=== PATIENT | male | born 1985 ===

== ENCOUNTER 2016-12-28 10:44 | Emergency (ER) | payer OTHER, SELFPAY ==
[2016-12-28 10:56] VITALS: BP 137/72; PULSE 84; RESP 20; TEMP 97.8
[2016-12-28 10:57] VITALS: BMI 24.4
[2016-12-28 11:12] VITALS: O2SAT 98
--- NOTE | 2016-12-28 12:07 | ED PDOC ---
HPI: Allergic Reaction Time Seen by Provider: 12/28/16 11:32 Chief Complaint (Nursing): Allergic Reaction Chief Complaint (Provider): Allergic reaction History Per: Patient History/Exam Limitations: no limitations Onset/Duration Of Symptoms: Days (yesterday) Current Symptoms Are (Timing): Still Present Additional Complaint(s): Pt. works with [employer]. States after working, he noted rash to his elbows, upper back, b/l upper legs and knees with itching. No pain. No numbness, tingles. No facial issues. No trouble swallowing or breathing. No chest pain. States others working have had a reaction as well. States only other thing he thinks may have caused the rash is walnuts he at yesterday. Past Medical History Reviewed: Nursing Documentation, Vital Signs Vital Signs: Last Vital Signs Temp 97.8 F 12/28/16 10:55 Pulse 84 12/28/16 10:55 Resp 20 12/28/16 10:55 BP 137/72 12/28/16 10:55 Pulse Ox 98 12/28/16 11:10 - Medical History PMH: No Chronic Diseases - Surgical History Surgical History: No Surg Hx - Family History Family History: States: Unknown Family Hx - Living Arrangements Living Arrangements: With Family - Social History Alcohol: None Drugs: Denies - Home Medications Home Medications: Ambulatory Orders Medication Instructions Recorded Guaifenesin/Pseudoephedrne HCl 1 ter PO BID #14 ter 03/24/14 [Mucinex D 1200 mg-120 mg] Azithromycin [Zithromax] 250 mg PO DAILY #6 tab 02/02/16 Loratadine/Pseudoephedrine 1 each PO DAILY PRN #10 tab.er.24h 02/02/16 [Claritin-D 24 Hour Tablet] DiphenhydrAMINE [Benadryl] 25 mg PO TID PRN 5 Days cap 12/28/16 predniSONE [predniSONE Tab] 20 mg PO BID 5 Days tab 12/28/16 - Allergies Allergies/Adverse Reactions: Allergies Allergy/AdvReac Type Severity Reaction Status Date / Time shellfish derived Allergy RASH Verified 12/28/16 11:10 Review of Systems Constitutional: Negative for: Fever, Weakness Cardiovascular: Negative for: Chest Pain, Edema, Light Headedness Respiratory: Negative for: Shortness of Breath Gastrointestinal: Negative for: Nausea, Vomiting, Abdominal Pain Musculoskeletal: Negative for: Neck Pain, Shoulder Pain, Arm Pain, Back Pain Skin: Positive for: Rash Neurological: Negative for: Weakness Physical Exam - Reviewed Nursing Documentation Reviewed: Yes Vital Signs Reviewed: Yes - Physical Exam Appears: Positive for: Non-toxic, No Acute Distress Head Exam: Positive for: ATRAUMATIC, NORMAL INSPECTION, NORMOCEPHALIC Skin: Positive for: Rash (R upper back, b/l elbows and knees, bl front upper legs with blanching erythema mild raised; no dc; appears in urticarial pattern) Eye Exam: Positive for: EOMI, Normal appearance, PERRL ENT: Positive for: Normal ENT Inspection. Negative for: Nasal Congestion, Pharyngeal Erythema Neck: Positive for: Normal, Painless ROM, Supple Cardiovascular/Chest: Positive for: Regular Rate, Rhythm Respiratory: Positive for: CNT, Normal Breath Sounds Gastrointestinal/Abdominal: Positive for: Normal Exam, Bowel Sounds, Soft. Negative for: Tenderness Back: Negative for: L CVA Tenderness, R CVA Tenderness Extremity: Positive for: Normal ROM. Negative for: Tenderness, Pedal Edema Neurologic/Psych: Positive for: Alert, Oriented - ECG O2 Sat by Pulse Oximetry: 98 Pulse Ox Interpretation: Normal - Progress ED Course And Treament: 1215: Stable. AAOx3. Pain free. Improvement. FU with pcp. Disposition - Clinical Impression Clinical Impression: Allergic reaction - Patient ED Disposition Is Patient to be Admitted: No Counseled Patient/Family Regarding: Diagnosis, Need For Followup, Rx Given - Disposition Referrals: [facility]Outside] - 12/30/16 Disposition: Routine/Home Disposition Time: 12:15 Condition: STABLE Additional Instructions: Return if not better in 3 days. Prescriptions: DiphenhydrAMINE [Benadryl] 25 mg PO TID PRN 5 Days cap PRN Reason: Itching / Pruritus predniSONE [predniSONE Tab] 20 mg PO BID 5 Days tab Instructions: Urticaria (ED) Print Language: ALGERIAN
== END 2016-12-28 12:26 | disposition home or self-care (01) ==
LOC: H.ER 10:44
DX: T78.40XA Allergy, unspecified, initial encounter (principal)

== ENCOUNTER 2017-07-28 16:58 | Emergency (ER) | payer OTHER ==
[2017-07-28 16:58] VITALS: BMI 24.4
--- NOTE | 2017-07-28 18:24 | ED PDOC ---
HPI: Abdomen Chief Complaint (Nursing): Abdominal Pain Chief Complaint (Provider): RLQ abdominal pain History Per: Patient History/Exam Limitations: no limitations Onset/Duration Of Symptoms: Days Outside of [place] travel?: No Current Symptoms Are (Timing): Better Location Of Pain/Discomfort: RLQ Quality Of Discomfort: "Pain" Associated Symptoms: Constipation. denies: Nausea, Vomiting, Diarrhea, Back Pain, Chest Pain, Urinary Symptoms Alleviating Factors: denies: None Last Bowel Movement: Today Additional Complaint(s): 32 y/o male with PMHx of DM type 1 presents to ED complaining of abdominal pain since Monday. Patient states that the abdominal pain was initially localized in his stomach on Monday, but since then has been moving to his lower abdomen, and now is localized in his RLQ, radiating sometimes to his suprapubic area, describes as gas sensation. Pain intensity ranges from 0-9/10, worse at night, denies alleviating factors, but sometimes aggravates with movements. Reports he was feeling warm on Monday. Has been passing gas, and had a bowel movement today morning. States his BM pattern was 2-3 times BM/day, but he has been constipated since Monday, until today morning that he had a BM. Denies fevers, chills, N/V, urinary symptoms, hematuria, or other complains. PMD: at [facility] in [place] Medss: Insulin PMHx: DM type 1, last BSL monitoring was this morning , and as per patient 70 mg /dl Past Medical History Vital Signs: Last Vital Signs Temp 98.2 F 07/28/17 17:09 Pulse 86 07/28/17 17:09 Resp 16 07/28/17 17:09 BP 125/69 07/28/17 17:09 Pulse Ox 99 07/28/17 19:01 - Medical History PMH: Diabetes - Surgical History Surgical History: No Surg Hx - Family History Family History: States: Unknown Family Hx - Social History Current smoker - smoking cessation education provided: No Ex-Smoker (has not smoked in the last 12 months): No Alcohol: None Drugs: Denies - Home Medications Home Medications: Ambulatory Orders Medication Instructions Recorded Guaifenesin/Pseudoephedrne HCl 1 ter PO BID #14 ter 03/24/14 [Mucinex D 1200 mg-120 mg] Azithromycin [Zithromax] 250 mg PO DAILY #6 tab 02/02/16 Loratadine/Pseudoephedrine 1 each PO DAILY PRN #10 tab.er.24h 02/02/16 [Claritin-D 24 Hour Tablet] DiphenhydrAMINE [Benadryl] 25 mg PO TID PRN 5 Days cap 12/28/16 predniSONE [predniSONE Tab] 20 mg PO BID 5 Days tab 12/28/16 - Allergies Allergies/Adverse Reactions: Allergies Allergy/AdvReac Type Severity Reaction Status Date / Time shellfish derived Allergy RASH Verified 12/28/16 11:10 Review of Systems ROS Statement: Except As Marked, All Systems Reviewed And Found Negative (as per HPI) Physical Exam - Reviewed Nursing Documentation Reviewed: Yes Vital Signs Reviewed: Yes - Physical Exam Appears: Positive for: Non-toxic, No Acute Distress Head Exam: Positive for: ATRAUMATIC, NORMOCEPHALIC Skin: Positive for: Normal Color, Warm, Dry. Negative for: Pallor, Rash, Jaundice, Cyanosis Eye Exam: Positive for: Normal appearance Cardiovascular/Chest: Positive for: Regular Rate, Rhythm. Negative for: Edema Respiratory: Positive for: Normal Breath Sounds. Negative for: Decreased Breath Sounds, Accessory Muscle Use, Crackles, Rales, Rhonchi, Wheezing, Respiratory Distress Gastrointestinal/Abdominal: Positive for: Bowel Sounds, Soft, Tenderness (mild tender to palpation of RLQ). Negative for: Mass, Distended, Guarding, Rebound, Hernia Back: Positive for: Normal Inspection. Negative for: L CVA Tenderness, R CVA Tenderness Extremity: Negative for: Pedal Edema, Calf Tenderness Neurologic/Psych: Positive for: Alert, Oriented - Laboratory Results Result Diagrams: 07/28/17 18:44 07/28/17 18:44 - ECG O2 Sat by Pulse Oximetry: 99 Medical Decision Making Medical Decision Making: RLQ abdominal pain -Could be 2/2 constipation, but appendicitis must be r/o -CBC, BMP -Abdominal & pelvis CT with IV contrast Re-evaluation -patient is pain free at re-evaluation -CBC: unremarkable, no leukocytosis -BMP: unremarkable -CT scan with IV contrast reported as no evidence of appendicitis or diverticulitis. Reported as enteritis, possibly Crohn's disease with multiple thickened, matted bowel loops in the right lower quadrant and possible interloop abscess; no CT findings of appendicitis or diverticulitis. -Abdominal pain of undetermined etiology Stable to be discharge home with recommended f/u with PMD as outpatient for possible further work up and GI referral Disposition - Clinical Impression Clinical Impression: Undifferentiated abdominal pain - Patient ED Disposition Is Patient to be Admitted: No Discussed With DrEdwin: Mirta Copeland - Disposition Disposition: Routine/Home Disposition Time: 20:50 Condition: GOOD Additional Instructions: F/u with PMD as outpatient ER precautions given Forms: [employer] (Turkish)
[2017-07-28 18:48] LABS: BASO # 0.1 K/uL (0.0-0.2); BASO % 0.6 % (0.0-2.0); EOS # 0.2 K/uL (0.0-0.7); EOS % 2.8 % (0.0-4.0); HEMOGLOBIN 14.8 g/dL (12.0-18.0); LYMPH # 1.2 K/uL (1.0-4.3); LYMPH % 15.3 % (20.0-40.0); MEAN CELL VOLUME 91.7 fl (80.0-94.0); MEAN CORPUSCULAR HEMOGLOBIN 31.3 pg (27.0-31.0); MEAN CORPUSCULAR HGB CONC 34.1 g/dL (33.0-37.0); MEAN PLATELET VOLUME 7.4 fl (7.2-11.7); MONO # 1.1 K/uL (0.0-0.8); MONO % 13.7 % (0.0-10.0); NEUT # 5.3 K/uL (1.8-7.0); NEUT % 67.6 % (50.0-75.0); RBC 4.72 Mil/uL (4.40-5.90); RED CELL DISTRIBUTION WIDTH 12.4 % (11.5-14.5); WHITE BLOOD COUNT 7.9 K/uL (4.8-10.8)
[2017-07-28 18:59] LABS: BLOOD UREA NITROGEN 17 mg/dl (9-20); CALCIUM 9.1 mg/dL (8.4-10.2); GFR AFRICAN-AMERICAN > 60; GFR NON-AFRICAN AMERICAN > 60
[2017-07-28] MEDS ORDERED: Iohexol 300 100 ML IJ ONE (19:13)
[2017-07-28] MEDS ORDERED: Sodium Chloride 0.9% 100 ML ONE (19:13)
--- NOTE | 2017-07-28 20:40 | CT ---
EXAM: CT Abdomen and Pelvis With Intravenous Contrast EXAM DATE/TIME: 07/28/2017 6:22 PM CLINICAL HISTORY: 32 years old, male; Pain; Abdominal pain; Flank; Right lower quadrant (rlq); Additional info: Rlq abdominal pain TECHNIQUE: Axial computed tomography images of the abdomen and pelvis with intravenous contrast. All CT scans at this facility use one or more dose reduction techniques, viz.: automated exposure control; ma/kV adjustment per patient size (including targeted exams where dose is matched to indication; i.e. head); or iterative reconstruction technique. Coronal and sagittal reformatted images were created and reviewed. CONTRAST: 95 mL of OMNIPAQUE 300 administered intravenously. COMPARISON: CT - ABD PELVIS PO IV CONTRAST 2016-02-15 12:12 FINDINGS: Lower thorax: Heart size is normal. There is minimal atelectasis at the lung bases ABDOMEN: Liver: There is fatty infiltration of the liver. Gallbladder and bile ducts: unremarkable Pancreas: Pancreas is mildly atrophic. Spleen: unremarkable Adrenals: unremarkable Kidneys and ureters: unremarkable Stomach and bowel: Stomach is incompletely distended. There is mild duodenal wall thickening. There is proximal jejunal wall and fold prominence. Mid small bowel is mildly distended with fluid. Small bowel loops in the right pelvis appear matted with wall thickening. There are multiple matted small bowel loops in the right lower quadrant. There is a 2.1 x 2.6 cm fluid collection with a small amount of air in the right lower quadrant, image 36 series 601, image 64 series 2, possibly abscess. Terminal ileum is mildly thickened. Appendix is unremarkable. There is moderate stool in the colon. There is scattered diverticulosis PELVIS: Appendix: See stomach and bowel Bladder: unremarkable Reproductive: Seminal vesicles and prostate are unremarkable. ABDOMEN and PELVIS: Intraperitoneal space: There is no free air in the upper abdomen. There is no free fluid. Bones/joints: There are no acute osseous abnormalities. Soft tissues: There is a small fat containing umbilical hernia. Vasculature: Vascular structures are unremarkable. Lymph nodes: There is shotty adenopathy. IMPRESSION: Evaluation of the abdomen is limited by lack of oral contrast; enteritis, possibly Crohn's disease with multiple thickened, matted bowel loops in the right lower quadrant and possible interloop abscess; no CT findings of appendicitis or diverticulitis Followup study with oral contrast opacifying the entire gastrointestinal tract and intravenous contrast suggested for more complete evaluation
[2017-07-28 21:21] VITALS: BP 124/71; PULSE 76; RESP 14; TEMP 98.1; O2SAT 98
== END 2017-07-28 21:21 | disposition home or self-care (01) ==
LOC: H.ER 16:58
DX: R10.31 Right lower quadrant pain (principal); E11.9 Type 2 diabetes mellitus without complications
CPT/HCPCS: 74177; 80048; 85025; 99283; Q9967